=== PATIENT | female | born 1950 | race Caucasian/White ===

== ENCOUNTER 2020-10-11 15:30 | Emergency (ER) | payer MEDICARE, OTHER, SELFPAY ==
--- NOTE | 2020-10-11 15:37 | ED.GENADULT ---
HPI - General Adult General Chief complaint: Unspecified Stated complaint: heartburn Time Seen by Provider: 10/11/20 15:38 Source: patient and RN notes reviewed History of Present Illness HPI narrative: Patient is a 70-year-old female who presents the urgent care with complaints of heartburn. Patient states that she has been experiencing the heartburn for approximately 1 week. States that she tends to go to bed okay and wake up in the morning okay and a develops throughout the day. Patient states that she has been living off of [facility] and was suggested by the pharmacist at [facility] to start omeprazole. Patient states that she has been taking the omeprazole for a couple days without any improvement. Patient does not currently have a primary care physician. Patient also recently started back on her phentermine approximately 1 month ago and has not spoke to her weight loss management provider regarding her symptoms. Patient has tried changing his in her diet such as eliminating caffeine the last 2 days without any improvement. Patient states that it is mostly directly in the throat and feels like she has to belch. Patient denies of any nausea, vomiting, chest pain, radiation of pain. No other acute complaints. No acute distress noted. Patient aware of the plan of care. Some parts of this dictation were generated by voice recognition software and may contain typographical and/or grammatical inaccuracies. Related Data Home Medications Medication Instructions Recorded Confirmed doxycycline hyclate 100 mg PO BID 10/11/20 10/11/20 omeprazole 20 mg PO DAILY 10/11/20 10/11/20 phentermine 37.5 mg PO DAILY 10/11/20 10/11/20 Allergies Allergy/AdvReac Type Severity Reaction Status Date / Time No Known Allergies Allergy Verified 05/17/20 10:19 Review of Systems Review of Systems: Narrative: CONSTITUTIONAL: Denies fever, chills, or sweats. EYES: Denies visual changes, redness, or discharge. ENT: Denies rhinorrhea, congestion, sore throat, or otalgia. CARDIOVASCULAR: Denies chest pain, palpitations, or edema. RESPIRATORY: Denies cough or dyspnea. GASTROINTESTINAL: Denies abdominal pain, nausea, vomiting, or diarrhea. Reports of heartburn GENITOURINARY: Denies dysuria or hematuria. SKIN: Denies rash or itching. MUSCULOSKELETAL: Denies back pain, joint pain, or myalgia. NEUROLOGIC: Denies headache, numbness, or weakness. All other systems reviewed are negative, except as documented in HPI. [facility] Past Medical History Medical History Plantar fasciitis of right foot Family History Family History Mother Family history of diabetes mellitus in first degree relative, Onset Age: 71 Sibling Family history of diabetes mellitus in first degree relative, Onset Age: 63 Patient's sister is in good health, Onset Age: 52 Family history of malignant neoplasm, Onset Age: 38 Family history of primary malignant neoplasm of liver, Onset Age: 51 Grandparent Family history of malignant neoplasm of breast Father Family history of emphysema, Onset Age: 74 Social History Social History Smoking status: Never smoker Smoking end date: 06/17/69 Alcohol intake: current Gender identity (if verbalized by the patient): Female Comments At the time of my signature, I reviewed and agree with the nursing past medical, surgical, social, and family history. There is no relevant family history pertinent to the patient complaint. Exam Narrative: Exam Narrative: GENERAL: This is a well-nourished, well-developed patient, in no apparent distress. HEAD: normocephalic, atraumatic. EYES: PERRL. Sclera clear/white. Vision is grossly intact. EARS: External ears normal NOSE: External nose normal with no obvious nasal discharge, nares without redness, no rhinorrhea. THROAT: Mucous me
[2020-10-11 15:42] VITALS: BP 139/81; PULSE 70; RESP 14; TEMP 36.6; O2SAT 100
== END 2020-10-11 16:08 | disposition home or self-care (01) ==
PROVIDERS: Emergency Provider Nurse Practitioner Family
DX: R12 Heartburn (principal)
CPT/HCPCS: 99213; G0463

== ENCOUNTER 2020-12-06 08:12 | Outpatient (CLI) | payer MEDICARE, OTHER, SELFPAY ==
--- NOTE | ~2020-12-06 | MM_ITS ---
EXAMINATION: MM screening maurizio BI w nolberto HISTORY: Screening mammogram TECHNIQUE: Craniocaudal and mediolateral oblique 3-D tomosynthesis images were obtained and synthetic 2-D images were generated. CAD analysis was submitted and interpreted. COMPARISON: 07/08/2015 bilateral diagnostic digital mammogram 04/15/2014 bilateral diagnostic digital mammography and bilateral breast ultrasound examination BREAST PARENCHYMAL COMPOSITION: The breasts are heterogeneously dense, which may obscure small masses . FINDINGS: Biopsy marker near a superolateral stable right subareolar mass, not significantly changed since 07/08/2015; history of prior benign left breast biopsy diagnosis. There is no evidence of suspic ious mass, calcification, or architectural distortion to suggest malignancy in either breast. There h as been no suspicious interval change. IMPRESSION: 1. No mammographic evidence of malignancy. 2. Recommend routine screening mammography in one year. BI-RADS Category 2: Benign finding(s). Reviewed, dictated and finalized at location A.
== END 2020-12-06 08:13 | disposition home or self-care (01) ==
PROVIDERS: Visit Provider Student in an Organized Health Care Education/Training Program
DX: Z12.31 Encounter for screening mammogram for malignant neoplasm of breast (principal)
CPT/HCPCS: 77063; 77067

== ENCOUNTER 2021-01-11 10:11 | Emergency (ER) | payer MEDICARE, OTHER, SELFPAY ==
[2021-01-11 10:17] VITALS: BP 164/71; PULSE 112; RESP 20; TEMP 36.6; O2SAT 100
[2021-01-11 10:28] VITALS: BP 164/71; PULSE 112; RESP 20; TEMP 36.6; O2SAT 100
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
== END 2021-01-11 10:50 | disposition home or self-care (01) ==
PROVIDERS: Emergency Provider Emergency Medicine; PCP Student in an Organized Health Care Education/Training Program
DX: T25.221A Burn of second degree of right foot, initial encounter (principal); T24.101A Burn of first degree of unspecified site of right lower limb, except ankle and foot, initial encounter; T22.111A Burn of first degree of right forearm, initial encounter; X01.0XXA Exposure to flames in uncontrolled fire, not in building or structure, initial encounter; E78.00 Pure hypercholesterolemia, unspecified; K21.9 Gastro-esophageal reflux disease without esophagitis
CPT/HCPCS: 99213; G0463

== ENCOUNTER 2022-05-07 13:51 | Outpatient (CLI) | payer MEDICARE, OTHER, SELFPAY ==
--- NOTE | ~2022-05-07 | DEXA_ITS ---
Bone Density Report Name: ADRIANO SHI Age: 72 Sex: Female Ethnicity: White Date of : 1950 Indication: postmenopausal; screening for osteoporosis; height loss; hysterectomy; Referring Provider: AMANDA, EDILBERTO Study: Bone densitometry was performed. Exam Date: May 07, 2022 Accession number: [id number] Bone Density: Region BMD T-score Z-score Classification AP Spine(L2, L3, L4) 0.949 -1.2 1.1 Osteopenia Femoral Neck (Left) 0.750 -0.9 1.0 Normal Total Hip (Left) 0.918 -0.2 1.4 Normal Femoral Neck (Right) 0.695 -1.4 0.5 Osteopenia Total Hip (Right) 0.864 -0.6 0.9 Normal Total Hip Mean 0.891 -0.4 1.2 Normal World Health Organization criteria for BMD impression classify patients as: Normal (T-score at or above -1.0), Osteopenia (T-score between -1.0 and -2.5), or Osteoporosis (T-score at or below -2.5). 10-year Fracture Risk(1): Major Osteoporotic Fracture 9.7% Hip Fracture 1.4% Reported Risk Factors: [place] (), Neck BMD=0.695, BMI=29.7 (1) FRAX(R) Version 3.08. Fracture probability calculated for an untreated patient. Fracture probability may be lower if the patient has received treatment. Clinical Information Provided by Patient: Has used the following medications: Vitamin D Has the following medical conditions: Hysterectomy Patient maximum height was 67 Menopause Age: 50 Drinks caffeinated beverages Onset of menses at age 13 Number of children 1 Impression: The patient has low bone mass, based on the Right Femoral Neck T-score. The patient has an estimated ten-year risk of hip fracture of 1.4% and an estimated ten-year risk of major fracture of 9.7%, based on the WHO FRAX algorithm. Discussion: BONE DENSITY IS LOW AT ONE OR MORE SKELETAL SITES. This patient's lowest T-score is low at one or more skeletal sites. It meets the World Health Organization's (WHO) criteria for ?low bone mass? (T-score between -1.0 and -2.5). The patient's 10-year risk of fracture as calculated by FRAX is less than the threshold where pharmacological therapy is recommended by the National Osteoporosis Foundation (NOF). However, all treatment decisions require clinical judgment and consideration of individual patient factors, including patient preferences, comorbidities, previous drug use, risk factors not captured in the FRAX model (e.g., frailty, falls, vitamin D deficiency, increased bone turnover, interval significant decline in bone density) and possible under or overestimation of fracture risk by FRAX. The patient should follow a healthful lifestyle (good nutrition with adequate calcium and vitamin D, and appropriate weight-bearing exercise). Follow-Up: Consider repeating this study in 2 to 3 years to reassess this patient's status, or sooner if there is some new c
== END 2022-05-07 13:52 | disposition home or self-care (01) ==
LOC: ANHIMG 13:54
PROVIDERS: PCP Student in an Organized Health Care Education/Training Program; Visit Provider Student in an Organized Health Care Education/Training Program
DX: Z78.0 Asymptomatic menopausal state (principal); M85.89 Other specified disorders of bone density and structure, multiple sites
CPT/HCPCS: 77080

== ENCOUNTER 2022-07-13 15:00 | Outpatient (CLI) | payer MEDICARE, OTHER, SELFPAY ==
--- NOTE | ~2022-07-13 | MM_ITS ---
EXAMINATION: MM screening maurizio BI w nolberto HISTORY: Screening TECHNIQUE: Craniocaudal and mediolateral oblique 3-D tomosynthesis images were obtained and synthetic 2-D images were generated. CAD analysis was submitted and interpreted. COMPARISON: Comparison to multiple prior studies sequentially, with oldest reviewed study dated 04/17. BREAST PARENCHYMAL COMPOSITION: The breasts are heterogeneously dense, which may obscure small masses . FINDINGS: There is a mass in the periareolar location of the left breast which appears enlarged roosevelt red with prior studies. The right breast is stable without evidence for malignancy. IMPRESSION: 1. Increased prominence of left periareolar mass. 2. Additional spot compression and mediolateral views with possible follow-up breast ultrasound recom mended. BI-RADS CATEGORY 0 - INCOMPLETE STUDY, NEED ADDITIONAL IMAGING EVALUATION. Reviewed, dictated and finalized at location A. L[facility] TRIMMER IMPRESSION: 1. Increased prominence of left periareolar mass. 2. Additional spot compression and mediolateral views with possible follow-up b reast ultrasound recommended. BI-RADS CATEGORY 0 - INCOMPLETE STUDY, NEED ADDITIONAL IMAGING EVALUATION.
== END 2022-07-13 15:01 | disposition home or self-care (01) ==
LOC: ANHIMG 15:22
PROVIDERS: PCP Student in an Organized Health Care Education/Training Program; Visit Provider Student in an Organized Health Care Education/Training Program
DX: Z12.31 Encounter for screening mammogram for malignant neoplasm of breast (principal); R92.8 Other abnormal and inconclusive findings on diagnostic imaging of breast
CPT/HCPCS: 77063; 77067

== ENCOUNTER 2022-11-27 13:05 | Outpatient (CLI) | payer MEDICARE, OTHER, SELFPAY ==
--- NOTE | ~2022-11-27 | MMUS_ITS ---
EXAMINATION: MM diagnostic maurizio LT w nolberto, US breast LT complete HISTORY: Increased prominence of the left periareolar mass reported on 07/13/2022 screening mammogram TECHNIQUE: Full field and spot 3-D tomosynthesis images of the left breast were performed and synthet ic 2-D images were generated. CAD analysis was submitted and interpreted. High resolution complete le ft breast ultrasound examination are all 4 quadrants and subareolar area was performed. COMPARISON: 07/13/2022 bilateral screening mammogram BREAST PARENCHYMAL COMPOSITION: The breasts are heterogeneously dense, which may obscure small masses . FINDINGS: MAMMOGRAPHIC FINDINGS: There is a circumscribed up to proxy 8.5 mm opacity situated anteriorly in the upper mid right breast . The mammographic features suggest benign process. Approximately 5.3 x 7 mm circumscribed low-density opacity is noted upper mid left breast at mid dept h. No suspicious mass, architectural distortion, Sarah calcification, skin thickening or retraction is e vident. ULTRASOUND: 12:00 near nipple: Parallel circumscribed complicated cyst with through transmission posterior enhanc ement. This measures 11.6 x 10 x 6.4 mm. No internal vascularity is noted on color flow imaging. The sonographic appearance is benign. 3:00 6 cm from nipple: There is a 3 mm simple cyst. IMPRESSION: 1. Benign findings 2. Routine annual mammographic screening is recommended BI-RADS Category 2: Benign finding(s). Reviewed, dictated and finalized at location A. IMPRESSION: 1. Benign findings 2. Routine annual mammographic screening is recommended BI-RADS Category 2: Benign finding(s).
== END 2022-11-27 13:06 | disposition home or self-care (01) ==
PROVIDERS: PCP Student in an Organized Health Care Education/Training Program; Visit Provider Student in an Organized Health Care Education/Training Program
DX: R92.8 Other abnormal and inconclusive findings on diagnostic imaging of breast (principal)
CPT/HCPCS: 76641; 77061; 77065; G0279